=== PATIENT | male | born 1990 | race Caucasian/White ===

== ENCOUNTER 2017-10-01 15:25 | Emergency (ER) | payer SELFPAY ==
[~2017-10-01 15:25] MED LIST: AEROI INH; ALBU6.7H INH; CETI10 PO; EPIP0.3I IM; MEDR4PAK3 PO
[2017-10-01 15:39] VITALS: BP 145/60; PULSE 79; RESP 14; TEMP 97.3; O2SAT 99
--- NOTE | 2017-10-01 16:58 | PD ---
HPI Chief Complaint: Pain: Acute or Chronic Time Seen by Provider: 16:10 Travel History International Travel<30 days: No Contact w/Intl Traveler<30days: No Traveled to known affect area: No History of Present Illness HPI 26-year-old male presents to the emergency room for evaluation of left third finger pain and swelling for the past several weeks. He denies any trauma or injury. Pain came on when he was cooking and has not improved over the past several weeks. He has not needed to take anything for pain. States he feels like it is in his bone. It is worsened when he pushes on the area. Not worsened with range of motion. No paresthesias. Patient denies loss of range of motion. No chronic medical conditions or daily medications. PFSH Past Medical History GERD: Yes Tetanus Vaccination: > 5 Years Past Surgical History Surgical History: No Previous Surgery Social History Alcohol Use: Yes (ONCE BIWEEKLY) Tobacco Use: No Substance Use: No Allergies-Medications (Allergen,Severity, Reaction): Coded Allergies: Sulfa (Sulfonamide Antibiotics) (Unverified Allergy, Severe, rash, itching , 10/01/17) Uncoded Allergies: LYCHEE FRUIT (Allergy, Severe, SOB, FACIAL SWELLING, ANAPHYLACTIC REACTION , 01/19/13) Reported Meds & Prescriptions Reported Meds & Active Scripts Active Review of Systems Except as stated in HPI: all other systems reviewed are Neg Physical Exam Narrative GENERAL: Well-nourished, well-developed male in no acute distress. Afebrile. Ambulatory. SKIN: Focused skin assessment warm/dry. No erythema or ecchymosis. HEAD: Normocephalic. EYES: No scleral icterus. No injection or drainage. NECK: Supple, trachea midline. No JVD or lymphadenopathy. CARDIOVASCULAR: Regular rate and rhythm without murmurs, gallops, or rubs. RESPIRATORY: Breath sounds equal bilaterally. No accessory muscle use. MUSCULOSKELETAL: No cyanosis. Moderate edema localized to the left third finger especially of the proximal phalanx. Less than 2 second capillary refill distally. Very mild tenderness to palpation of the proximal phalanx. Full range of motion of the left hand. Data Data Last Documented VS Vital Signs Date Time Temp Pulse Resp B/P (MAP) Pulse Ox O2 Delivery O2 Flow Rate FiO2 10/01/17 15:39 97.3 79 14 145/60 (88) 99 Orders Orders Finger (Log3wio) (10/01/17 ) [facility] Medical Decision Making Medical Screen Exam Complete: Yes Emergency Medical Condition: Yes Medical Record Reviewed: Yes Differential Diagnosis Fracture, strain, sprain, contusion, dislocation Narrative Course 26-year-old male presents to the emergency room for evaluation of left third finger pain and swelling for the past month. He denies any trauma or injury. Physical exam is unremarkable. There is moderate edema of the left third finger but no significant tenderness to palpation. No deformity. Less than 2 second capillary refill distally. Full range of motion. X-rays negative. Patient may have had finger sprain but it did not cause loss of range of motion. He was told to follow-up with primary care physician if symptoms persist for outpatient referral to hand surgeon return for worsening symptoms. He understands and agrees to plan. Diagnosis Primary Impression: Finger sprain Qualified Codes: S63.633A - Sprain of interphalangeal joint of left middle finger, initial encounter Referrals: Primary Care Physician Additional Instructions: Rest and drink plenty of fluids. Take ibuprofen with food as directed, as needed for pain. Apply ice to the affected area for 20 minutes at a time, as needed for pain and swelling. Follow-up with a primary care physician. Return to the emergency room for worsening symptoms. Disposition: 01 DISCHARGE HOME Condition: Stable Corry Judge Oct 01, 2017 16:58
--- NOTE | 2017-10-01 17:06 | RADRPT ---
EXAM DATE/TIME: 10/01/2017 16:36 [place] COMPARISON: No previous studies available for comparison. INDICATIONS : Left 3rd digit pain for 1 month with no known injury MEDICAL HISTORY : None. SURGICAL HISTORY : None. ENCOUNTER: Initial ACUITY: 1 month PAIN SCORE: 7/10 LOCATION: Left PIP joint FINDINGS: Examination of the third digit of the left hand demonstrates no evidence of fracture or dislocation. No radiopaque foreign bodies are seen. The soft tissues are intact. CONCLUSION: Unremarkable examination of the left third finger. Sushil Montero MD on October 01, 2017 at 17:03 Board Certified Radiologist. This report was verified electronically.
== END 2017-10-01 17:19 | disposition home or self-care (01) ==
LOC: NEPK 15:25
DX: S63.633A Sprain of interphalangeal joint of left middle finger, initial encounter (principal); M79.89 Other specified soft tissue disorders; Z88.2 Allergy status to sulfonamides; X58.XXXA Exposure to other specified factors, initial encounter; Y93.G3 Activity, cooking and baking
CPT/HCPCS: 73140; 99283